=== PATIENT | female | born 1990 | race Two or more races ===

== ENCOUNTER 2021-11-21 12:54 | Emergency (ER) | payer OTHER ==
[~2021-11-21] VITALS: Ht 165.1 cm; Wt 104.3 kg
[~2021-11-21 12:54] MED LIST: AMOX1TAB12 PO; IBUPROFEN800 MG PO
== END 2021-11-21 18:03 | disposition home or self-care (01) ==
LOC: ER 12:54
DX: R10.84 Generalized abdominal pain (principal)

== ENCOUNTER → 2025-07-13 | Emergency (ER) | payer OTHER ==
[~2025-07-13] MED LIST changes: +ESGIC 50-325-41 EACH PO
== END | disposition left against medical advice (07) ==
LOC: ER 21:07
DX: Z53.21 Procedure and treatment not carried out due to patient leaving prior to being seen by health care provider (principal)